=== PATIENT | female | born 1935 | race Caucasian/White ===

== ENCOUNTER 2018-06-15 07:29 | Inpatient (IN) | payer OTHER ==
[~2018-06-15] VITALS: Ht 165.1 cm; Wt 104.3 kg
[~2018-06-15 07:29] MED LIST: ASPIR 8181 MG PO; ASPIRIN325 PO; AUGMENTIN 875875 MG PO; AZO URINARY TR1 EACH PO; BISACODYL SUPP10 MG RECTAL; COLACE100 MG PO; DICLOFENAC SODI75 MG PO; FIBER GUMMIES1 EACH PO; HYDROCODONE-AP1 EAC6 PO; LOVASTATIN 20 M20 MG PO; OXYCODONE HCL 55 MG PO; PRINIVIL20 M1 PO; TUMS PO; XARELTO10 MG PO
[2018-06-15 07:35] VITALS: BP 177/75
[2018-06-15 07:52] LABS: ABSOLUTE LYMPHOCYTES 1.8 thou/uL (0.8-5.3); ABSOLUTE MONOCYTES 0.4 thou/uL (0.0-1.2); ABSOLUTE NEUTROPHILS 3.5 thou/uL (1.6-8.1); BASOPHILS 0.5 %; EOSINOPHILS 0.6 %; HEMATOCRIT 47.5 % (37.0-47.0); LYMPHOCYTES 31.3 %; MCH 31.7 pg (26.0-34.0); MCHC 33.6 g/dL (28.0-37.0); MCV 94.2 fL (80.0-100.0); MONOCYTES 7.3 %; MPV 7.9 fl. (7.2-11.1); NUCLEATED RBCS 0 /100WBC; PLATELET COUNT* 224 thou/uL (150-400); POLYS 60.3 %; RBC 5.05 mil/uL (4.20-5.00); RDW-CV 13.8 % (10.5-14.5); WBC 5.9 thou/uL (4.0-11.0)
[2018-06-15 08:08] LABS: ALBUMIN 3.4 g/dL (3.4-5.0); ALKALINE PHOSPHATASE 77 U/L (46-116); ANION GAP 10 mmol/L (7-16); BUN 16 mg/dL (7-18); CALCIUM 9.3 mg/dL (8.5-10.1); CHLORIDE 103 mmol/L (98-107); CO2 30 mmol/L (21-32); GLUCOSE 96 mg/dL (70-99); POTASSIUM 3.6 mmol/L (3.5-5.1); SGOT 70 U/L (15-37); SGPT 39 U/L (30-65); SODIUM 143 mmol/L (136-145); TOTAL BILIRUBIN 1.9 mg/dL (<0.1-1.0); TOTAL PROTEIN 7.6 g/dL (6.4-8.2); TROPONIN-I LEVEL <0.06 ng/mL (<0.06)
[2018-06-15 08:17] LABS: LIPASE 11725 U/L (73-393)
--- NOTE | 2018-06-15 09:29 | NUR ---
IRIS NOTIFIED UPON PT RETURN FROM CT. PT WAS NOT CONNECTED TO MONITOR SHE WAS NOT CONNECTED PRIOR TO GOING TO CT
[2018-06-15 10:12] LABS: CHOLESTEROL 171 mg/dL (<200); HDL CHOLESTEROL 59 mg/dL (>40); LDL CHOLESTEROL 99 mg/dL (<100); TC:HDL 2.9 Ratio (Not establshd); TRIGLYCERIDE 66 mg/dL (<150); VLDL 13 mg/dL (<40)
[2018-06-15 10:13] LABS: SERUM ASSESSMENT Clear
[2018-06-15 12:50] VITALS: BP 169/67
[2018-06-15 13:19] VITALS: BP 145/62
--- NOTE | 2018-06-15 13:45 | EKG ---
[place] [address] ELECTROCARDIOGRAM REPORT Name: LATISHA ANDERSEN Room: [address] ADM IN M.R.#: [id number] Admission: 06/15/18 Attend Phys: Melvi Arechiga MD Discharge: Date of : 31 Report #: [id number] THIS REPORT FOR: //name// [facility] ED Test Date: 2018-06-15 Test Time: 07:51:42 Pat Name: LATISHA ANDERSEN Department: Room: [facility] Gender: F Facial Operator: TENA : 1935 Requested By: Zoran Barillas Order Number: [id number] MD: Art Barrientos Measurements Intervals [place] Rate: 77 P: 16 AK: 149 QRS: -27 QRSD: 139 T: 1 QT: 420 QTc: 476 Interpretive Statements Sinus rhythm Ventricular premature complex Right bundle branch block Inferior infarct, old Compared to ECG 02/25/2016 09:03:28 Ventricular premature complex(es) now present Right bundle-branch block now present Myocardial infarct finding now present Electronically Signed On 06-15-2018 13:45:02 CDT by Art Barrientos [email or web address] <ELECTRONICALLY SIGNED> By: Art Barrientos MD, FACC 06/15/18 1345 [id number] Art Barrientos MD, FAC /EPI
--- NOTE | 2018-06-15 15:48 | NUR ---
PATIENT CAME FROM THE ER IN STABLE CONDITION ON ROOM AIR. AMBULATED FROM CART TO BED WITH STEADY GAIT. NO COMPLAINTS OF PAIN SINCE COMING FROM THE ER. FLUIDS INFUSING IN LEFT AC. PATIENT IS NPO EXCEPT ICE CHIPS. UP AD MALACHI IN ROOM. ROOM ORIENTATION AND ADMISSION ASSESSMENT DONE. QUESTIONS ANSWERED FOR PATIENT AND . CALL LIGHT IS IN REACH, WILL CONTINUE TO MONITOR.
--- NOTE | 2018-06-15 17:28 | NUR ---
PATIENT IS ALERT AND ORIENTED TODAY VERY PLEASANT. UP AD MALACHI IN ROOM. PATIENT IS NPO EXCEPT FOR ICE CHIPS. NO PAIN SINCE COMING FROM THE ER EARLIER IN THE DAY. CALL LIGHT IS IN REACH, WILL CONTINUE TO MONITOR.
[2018-06-15 20:00] VITALS: BP 153/75
[2018-06-16 04:13] LABS: ABSOLUTE EOSINOPHILS 0.1 thou/uL (0.0-0.7); ABSOLUTE LYMPHOCYTES 2.2 thou/uL (0.8-5.3); ABSOLUTE MONOCYTES 0.5 thou/uL (0.0-1.2); ABSOLUTE NEUTROPHILS 2.5 thou/uL (1.6-8.1); BASOPHILS 0.3 %; EOSINOPHILS 1.6 %; HEMATOCRIT 40.5 % (37.0-47.0); LYMPHOCYTES 41.6 %; MCH 31.1 pg (26.0-34.0); MCV 94.3 fL (80.0-100.0); MONOCYTES 8.8 %; MPV 8.2 fl. (7.2-11.1); NUCLEATED RBCS 0 /100WBC; PLATELET COUNT* 174 thou/uL (150-400); POLYS 47.7 %; RBC 4.29 mil/uL (4.20-5.00); RDW-CV 13.8 % (10.5-14.5); WBC 5.3 thou/uL (4.0-11.0)
[2018-06-16 04:18] LABS: ALBUMIN 3.1 g/dL (3.4-5.0); CALCIUM 8.8 mg/dL (8.5-10.1); CREATININE 0.9 mg/dL (0.6-1.3); MAGNESIUM 2.2 mg/dL (1.8-2.4); POTASSIUM 3.6 mmol/L (3.5-5.1); TOTAL BILIRUBIN 0.9 mg/dL (<0.1-1.0); TOTAL PROTEIN 6.4 g/dL (6.4-8.2)
--- NOTE | 2018-06-16 04:26 | NUR ---
ASSESSMENT: PT REMAIN ALERT AND ORIENT TIMES FOUR. UP AD MALACHI IN THE ROOM. DENIES PAIN, SOB AND N/V. SLEPT DURING THE NIGHT, SAT UP IN CHAIR AT APPROXIMATELY 0400. TOLERATING ICE CHIPS ONLY, BUT STATE THAT SHE IS READY TO EAT. VSS, AFEBRILE. REMAIN NPO. PT DID REQUEST STOOL SOFTNER, WILL PASS ON TO DAY SHIFT RN TO INFORM THE ROUNDING DR. SLOW PROGRESS TOWARDS DC GOALS, WILL CONTINUE TO MONITOR.
[2018-06-16 04:39] LABS: HEMOGLOBIN 13.4 gm/dL (12.0-15.0)
[2018-06-16 08:00] VITALS: BP 147/70
--- NOTE | 2018-06-16 10:13 | NUR ---
INITIAL ASSESSMENT: Pt evaluated for d/c planning needs. Reviewed chart and spoke with nurse, pt and spouse. Pt is alert and oriented. Pt lives in house with spouse of 64 years. Pt was independent with ADL's prior to admission. Pt states she remains active in the community and is still driving. Pt has walker at home and has had [facility] in the past. Pt plans on returning home on d/c from hospital. Will remain available to assist as needed.
--- NOTE | 2018-06-16 16:34 | NUR ---
PATIENT IS ALERT AND OREINTED TODAY VERY PLEASANT. UP AD MALACHI IN ROOM. VITAL SIGNS STABLE ON ROOM AIR. TOLERATED CLEAR LIQUIDS DIET, WILL BE NPO AFTER MIDNIGHT FOR POSSIBLE SURGERY. FAMILY AT BEDSIDE TODAY CALL LIGHT IS IN REACH, WILL CONTINUE TO MONITOR.
--- NOTE | 2018-06-16 19:25 | CON ---
[address] [address] CONSULTATION Name: LATISHA ANDERSEN Room: [address] IN .R.#: [id number] Admission: 06/15/18 Attend Phys: Melvi Arechiga MD Discharge: Date of : 31 Report #: [id number] THIS REPORT FOR: //name// CC: Petar Arechiga DATE OF SERVICE: 06/15/2018 HISTORY OF PRESENT ILLNESS: This is a pleasant 82-year-old female, with past medical history significant for hypertension and hyperlipidemia, presented to the ED with abdominal pain starting 5 days back. The patient reports the pain was initially intermittent and then progressed to become more severe and constant. The patient reports the pain is worse with eating and has been relieved after getting pain medications following admission. The patient denies similar episodes in the past. Denies any significant hematemesis, hematochezia or diarrhea. The patient does report intermittent nausea and vomiting over the last few days. PAST MEDICAL HISTORY: Hypertension and hyperlipidemia. PAST SURGICAL HISTORY: The patient had a back surgery and a hysterectomy performed in the remote past. SOCIAL HISTORY: The patient denies smoking, alcohol or recreational drug use. FAMILY HISTORY: There is no family history of colorectal or gastric cancer. REVIEW OF SYSTEMS: Negative except for what was mentioned in the HPI. PHYSICAL EXAMINATION: VITAL SIGNS: The patient's temperature is 36.4, pulse rate 61, respirations 16, blood pressure 169/76, pulse ox is 95%. GENERAL: The patient is alert, awake, oriented x 3. HEENT: Pupils are equal, round, reactive to light and accommodation. Mucous membranes are moist. There is no congestion. LUNGS: Clear to auscultation bilaterally. CARDIOVASCULAR: Rate and rhythm regular. S1, S2 present. ABDOMEN: Soft. There is no distention, guarding or rigidity. SKIN: Warm and dry. LABORATORY DATA: Hemoglobin 16.0, hematocrit 47.5, platelet count 224, WBC count 5.9. Sodium 143, potassium 3.6, chloride 103, bicarbonate 30, BUN 16, creatinine 1. AST 70, ALT 33, alkaline phosphatase 77. IMAGING: Abdomen and pelvis CT, this demonstrates thickening of the gallbladder with surrounding inflammation suspicious for acute [place]olecy[place] [address] CONSULTATION Name: NATHALYLATISHA L Room: [address] IN [facility]#: [id number] Admission: 06/15/18 Attend Phys: Melvi Arechiga MD Discharge: Date of : 33 Report #: [id number] ultrasound could not be obtained, could be obtained if confirmation is not clinically evident. Normal appearance of the pancreas, normal appendix. Abdominal ultrasound, gallbladder is prominent, contains moderate sludge. Negative Ledezma sign. No evidence of biliary obstruction. ASSESSMENT AND PLAN: A pleasant 82-year-old female, with history mentioned above, presents with acute onset abdominal pain that is epigastric in nature. This is accompanied by elevated lipase suggestive of presence of acute pancreatitis. The patient has mild acute pancreatitis based on her BISAP score and there does not appear to be new local complications as of now. She does have CT evidence of gallbladder sludge and thickening of the gallbladder. The patient likely has biliary pancreatitis and will need interval cholecystectomy to prevent recurrent episodes. Thank you for this consultation. <ELECTRONICALLY SIGNED> By: Lonnie Fleming MD 06/16/18 [id number] Fleming MD /nt
--- NOTE | 2018-06-17 03:20 | NUR ---
ASSESSMENT: PT REMAIN ALERT AND ORIENT TIMES FOUR. TOLERATING PO INTAKE OF CLEAR LIQUIDIS AT THIS TIME. NOT SURE IF SHE IS GOING TO BE DISCHARGED IN THE AM, BUT THOSE ARE HER WISHES FOR HER DOES NOT DO WELL WITHOUT HER, HE GETS LOST AND BECOME MORE ANXIOUS. VSS, AFEBRILE. NPO AT [place] FOR POSSIBLE PROCEDURE TODAY. SLOW PROGRESS, WILL CONTINUE TO MONITOR.
[2018-06-17 04:51] LABS: CALCIUM 8.8 mg/dL (8.5-10.1); CREATININE 0.8 mg/dL (0.6-1.3); POTASSIUM 3.8 mmol/L (3.5-5.1)
[2018-06-17 06:06] LABS: ALBUMIN 3.3 g/dL (3.4-5.0); DIRECT BILIRUBIN 0.2 mg/dL (<0.1-0.3); TOTAL BILIRUBIN 0.8 mg/dL (<0.1-1.0); TOTAL PROTEIN 6.9 g/dL (6.4-8.2)
[2018-06-17 08:45] VITALS: BP 174/78
[2018-06-17 15:39] VITALS: BP 185/75
[2018-06-17 16:44] VITALS: BP 185/75
--- NOTE | 2018-06-17 17:57 | NUR ---
PATIENT IS ALERT AND ORIENTED TODAY VERY PLEASANT, VITAL SIGNS STABLE ON ROOM AIR, NO COMPLAINTS OF ANY PAIN OR NAUSEA TODAY. PATIENT TOLERATED DIET WELL TODAY. PATIENT IS BEING DISCHARGED TO HOME. DISCHARGE INSTRUCTIONS GIVEN WITH PHONE NUMBER TO SURGEON PROVIDED. LEFT VIA WHEELCHAIR TO HOME WITH SPOUSE.
[2018-06-17 18:01] VITALS: BP 185/75
== END 2018-06-17 18:03 | disposition home or self-care (01) | DRG 444 ==
LOC: M.ERS 07:29 → M.3W 08:57 → M.TBA-ER 08:57 → M.3W 13:09
PROVIDERS: Emergency Medicine Emergency Medical Services; Family Medicine; Surgery; ADMIT Internal Medicine
DX: K81.0 Acute cholecystitis (principal); K85.90 Acute pancreatitis without necrosis or infection, unspecified; I10 Essential (primary) hypertension; E78.5 Hyperlipidemia, unspecified; Z96.641 Presence of right artificial hip joint; Z90.710 Acquired absence of both cervix and uterus; Z86.010 Personal history of colon polyps; Z79.899 Other long term (current) drug therapy

== ENCOUNTER → 2018-07-03 | Day surgery (SDC) | payer OTHER ==
[~2018-07-03] MED LIST changes: +NORCO 5-325 TA1 EACH PO
[2018-07-03 06:46] LABS: HEMATOCRIT 45.6 % (37.0-47.0); HEMOGLOBIN 15.2 gm/dL (12.0-15.0); MCH 31.4 pg (26.0-34.0); MCHC 33.3 g/dL (28.0-37.0); MCV 94.2 fL (80.0-100.0); MPV 9.4 fl. (7.2-11.1); RBC 4.84 mil/uL (4.20-5.00); RDW-CV 13.9 % (10.5-14.5); WBC 6.7 thou/uL (4.0-11.0)
[2018-07-03 07:06] LABS: ALBUMIN 3.7 g/dL (3.4-5.0); CALCIUM 9.1 mg/dL (8.5-10.1); POTASSIUM 3.6 mmol/L (3.5-5.1); TOTAL BILIRUBIN 0.7 mg/dL (<0.1-1.0); TOTAL PROTEIN 7.4 g/dL (6.4-8.2)
--- NOTE | 2018-07-05 17:07 | PATH ---
[address] [address] PATHOLOGY RPT PROCEDURE Name: LATISHA LAYNE Eduardo Room: [facility].#: [id number] Admission: 07/03/18 Date of : 31 Discharge: Report #: [id number] Path Case #: [id number] [facility] Accession Number: [id number] . 01 Material submitted: . GALLBLADDER . 01 Clinical history: . Gallstone, pancreatitis . 02 Diagnosis: Gallbladder: - Chronic cholecystitis. - See comment. (RUPINDER:kulwinder 07/05/2018) QT/07/05/2018 . 02 Comment: No gallstones were identified in the submitted specimen. (RUPINDER:kulwinder 07/05/2018) . 02 Electronically signed: . Javon Montero MD, Pathologist NPI- [id number] . 01 Gross description: . The specimen is received in formalin, labeled "Latisha Layne, gallbladder", is an intact, distended gallbladder measuring 8.4 x 2.2 x 2.0 cm with a glistening, smooth, purple-green serosa. The lumen is filled with yellow-green viscous bile and no discrete calculi. The mucosa is velvety green and the wall has an average thickness of 0.1 cm. No discrete masses are identified. [employer] tissue is submitted in A1. ([facility]; 07/04/2018) SHS/SHS . 02 Pathologist provided ICD-10: K81.1 . 02 CPT . 455493 Specimen Comment: A courtesy copy of this report has been sent to Specimen Comment: [phone], . Specimen Comment: Report sent to / DR BARRY Performed at: [address] [id number] MD Luis Mar MD Phone: [phone] Performed at: [address] [address] PATHOLOGY RPT PROCEDURE Name: LATISHA LAYNE Room: [facility]#: [id number] Admission: 07/03/18 Date of : 31 Discharge: Report #: [id number] Path Case #: [id number] [address] [id number] MD Javon Montero MD Phone: [phone]
--- NOTE | 2018-07-09 12:35 | OP ---
[address] [address] OPERATIVE REPORT Name: LATISHA ANDERSEN Room: [facility]#: [id number] Admission: 07/03/18 Attend Phys: Chad Shirley DO Discharge: Date of : 31 Report #: [id number] THIS REPORT FOR: //name// CC: Chad Davey [facility] DICTATED BY: Garcia Ferreira DO DATE OF SERVICE: 07/03/2018 PREOPERATIVE DIAGNOSES: Cholelithiasis and pancreatitis. POSTOPERATIVE DIAGNOSES: Cholelithiasis and pancreatitis. SURGEON: Chad Shirley DO. REHAB SERVICES AIDE: Maciel Ferreira, PGY4. OPERATION PERFORMED: Laparoscopic cholecystectomy with attempted intraoperative cholangiogram that was aborted. ANESTHESIA: General and local. ESTIMATED BLOOD LOSS: 20 mL. SPECIMENS REMOVED: Gallbladder and contents. COMPLICATIONS: None. COMMENTS: The patient was transferred to the PACU in stable condition. HISTORY OF PRESENT ILLNESS: The patient is a very pleasant 82-year-old female who was admitted to [facility] approximately 1 month ago. At this time, she was admitted with pancreatitis. An ultrasound showed that she had sludge within the gallbladder. The patient was allowed to recover from this and was sent home to further recover. She adhered to a strict diet and was scheduled for a laparoscopic cholecystectomy with a possible intraoperative cholangiogram. A complete description of the procedure was reviewed in detail with the patient. All risks, benefits and complications were discussed and include but not limited to bleeding, infection, hernias at incision sites, need for an open procedure, injury to surrounding structures such as stomach, duodenum and bile ducts. The patient voiced complete understanding and wished to proceed. DESCRIPTION OF PROCEDURE: After the appropriate consents were obtained, the patient was taken to the operating room, laid in supine position. She had SCDs [facility] [address] [place] [address] OPERATIVE REPORT Name: LATISHA ANDERSEN Room: [facility]#: [id number] Admission: 07/03/18 Attend Phys: Chad Shirley DO Discharge: Date of : 33 Report #: [id number] placed on bilateral lower extremities and a safety strap placed across her lap. All lines were placed by Anesthesia. A footboard was placed at the end of the bed to secure her feet to the bed. Her arms were placed out. The patient was then given general anesthetic and was subsequently intubated without difficulty. Her abdomen was then exposed. The abdomen was prepped and draped in standard sterile fashion. A timeout was performed to correctly identify the patient and procedure. She was given perioperative antibiotics at this time. We started with a supraumbilical midline incision and dissected down through subcutaneous tissue until we encountered the anterior abdominal wall fascia. The fascia was incised using electrocautery and grasped between 2 Macho clamps. The fascia was then elevated and further incised. We entered the intra-abdominal cavity bluntly using a hemostat. A finger was used to sweep the intra-abdominal cavity to assure that there were no kriss-incisional adhesions, none were present. We then inserted a 5 mm balloon trocar and introduced the camera. On further introduction of the camera, there was obvious amount of right-sided abdominal wall adhesions. We were able to place our subxiphoid port, which was 11 mm port under direct visualization. At this time, we used this port to bluntly as well as using electrocautery to take down the right-sided abdominal wall adhesions. This allowed us to visualize the liver. We placed our two right-sided lateral abdominal wall ports under direct visualization. Both of these ports were 5 mm ports. The patient was then placed in the head up, left side down position. We started by attempting to identify the gallbladder, which had extensive amount of omental adhesions to it. We had started just adjacent to the liver and were able to dissect off the peritoneum and identify the gallbladder, which was just beneath some omental adhesions. The gallbladder was then elevated and retracted anteriorly and superiorly. Again, using blunt dissection as well as electrocautery, we were able to dissect down inferiorly on the gallbladder to encounter Hugo pouch. Hugo pouch was then retracted laterally, and we started on this lateral side to continue our dissection. We were able to identify the cystic duct, which was dissected out using blunt dissection. We did attempt to perform a cholangiogram at this time. We then placed a clip on the most distal portion of the cystic duct just adjacent to the gallbladder. We then made a nicking incision within the duct after we confirmed that this was the cystic duct using ICG immunofluorescent green. We were able to identify a single structure going directly into the gallbladder. We were also able to identify our critical view at this time. Then, we made our nicking incision within the duct and attempted to place our taut catheter within the cystic duct. The catheter was attempted to be flushed several times and was unable to be passed down the cystic duct. Each time we attempted to flush, we were unable. After multiple attempts at this, we then aborted the portion of the cholangiogram. We then placed 3 clips more proximally on the cystic duct and then further incised the duct completely. We then dissected laterally, identified our cystic artery, which had been cauterized previously during our dissection. We then removed the gallbladder from the liver bed using electrocautery. Once the gallbladder was completely removed, it was placed with an EndoCatch pouch. Any bleeding that was occurring [place] [address] OPERATIVE REPORT Name: LATISHA ANDERSEN Room: [facility].#: [id number] Admission: 07/03/18 Attend Phys: Chad Shirley DO Discharge: Date of : 33 Report #: [id number] adequately controlled using electrocautery. We then decided to place a piece of Surgicel as well along the gallbladder bed for further hemostasis. We returned the omentum to its anatomical position, and the patient was returned to the supine position. The trocars were then removed under direct visualization. There was no bleeding from either trocar sites. We then reapproximated the fascia using 0 Vicryl sutures in an interrupted fashion using [id number] sutures. The patient's subcutaneous tissue was closed using 3-0 Vicryl suture. The skin was closed using a 4-0 Monocryl suture in a running fashion. The remaining trocar sites were then closed using 4-0 Monocryl suture in an inverted interrupted fashion. The port sites were then locally anesthetized using 0.5% Marcaine for a total of 30 mL. Each of the incision sites were then cleaned and dried adequately. Mastisol, Steri-Strips and a sterile Tegaderm Op-Site were then applied. Gauze and tape were then applied over this for further pressure dressings. The patient was allowed to awaken in the operating room and subsequently extubated. She will be transported to the PACU for further recovery. All counts were correct x [address] Shirley was present and scrubbed for the entire procedure. ADDENDUM. OPERATION PERFORMED: Laparoscopic cholecystectomy with attempted intraoperative cholangiogram which was aborted and lysis of adhesions greater than 30 minutes. <ELECTRONICALLY SIGNED> By: Chad Shirley DO 07/09/18 1235 [id number] Tiffany Shirley DO /nt
== END | disposition home or self-care (01) ==
LOC: M.SUR 06:22
PROVIDERS: Surgery
DX: K81.1 Chronic cholecystitis (principal); K85.90 Acute pancreatitis without necrosis or infection, unspecified; I10 Essential (primary) hypertension; E78.5 Hyperlipidemia, unspecified; Z90.710 Acquired absence of both cervix and uterus; Z79.899 Other long term (current) drug therapy; Z98.890 Other specified postprocedural states

== ENCOUNTER 2021-01-03 12:03 | Emergency (ER) | payer OTHER ==
[~2021-01-03] VITALS: Ht 165.1 cm; Wt 113.4 kg
[2021-01-03 13:26] VITALS: BP 188/111
== END 2021-01-03 13:29 | disposition home or self-care (01) ==
LOC: M.ERS 12:03
DX: M25.561 Pain in right knee (principal); M19.90 Unspecified osteoarthritis, unspecified site; I10 Essential (primary) hypertension; E78.5 Hyperlipidemia, unspecified; Z90.711 Acquired absence of uterus with remaining cervical stump; Z96.652 Presence of left artificial knee joint; Z79.899 Other long term (current) drug therapy; Z96.641 Presence of right artificial hip joint